=== PATIENT | male | born 1965 | race Caucasian/White ===

== ENCOUNTER 2016-08-13 20:46 | Emergency (ER) | payer SELFPAY ==
--- NOTE | 2016-08-13 20:51 | ED Physician Documentation ---
Lower Extremity Injury - HISTORIAN Historian: patient - HPI Stated Complaint: rolled ankle Chief Complaint: Ankle Injury Additional Information: Walking from [place] to [place] along [address] and rolled right ankle. Onset: minutes - ROS CONST: no problems - PAST HX Past History: other (multiple fx's right foot and ankle arter he jumped from [place] roof. Simus surgery, tonsillectomy.) Allergies/Adverse Reactions: Allergies Allergy/AdvReac Type Severity Reaction Status Date / Time No Known Allergies Allergy Verified 08/13/16 20:53 Home Medications: Ambulatory Orders Medication Instructions Recorded NK [NK] 08/13/16 - SOCIAL HX Smoking History: cigarettes - FAMILY HX Family History: other (depression) - VITAL SIGNS Vital Signs: Vital Signs Temp Pulse Resp BP Pulse Ox 90 16 125/93 99 08/13/16 20:46 08/13/16 20:46 08/13/16 20:46 08/13/16 20:46 - REVIEWED ASSESSMENTS Nursing Assessment Reviewed: Yes Vitals Reviewed: Yes Progress - Progress Progress: Right ankle -three views CLINICAL HISTORY: Injury. Lateral pain. FINDINGS: Examination right ankle in AP, lateral and oblique views fails to demonstrate evidence of fracture or dislocation. There is small ossicle adjacent to the distal fibula likely related to an old injury. Ankle mortise is anatomic. IMPRESSION: No acute fracture. Electronically signed on Aug 13, 2016 9:36:27 PM QA ANALYST by: Zafar Lee ED Results Lab/Radiology - Orders Orders: ED Orders Category Date Time Status Brandon Wrap Affected Extremity 1T Care 08/13/16 21:38 Active ANKLE 3 VIEWS OR MORE [RAD] Stat Exams 08/13/16 Taken Lower Extremities Injury Phy - Physical Exam General Appearance: no acute distress, alert Hips: bilateral hip: no evidence of injury Legs: bilateral: no evidence of injury Knees: bilateral: no evidence of injury Ankle: right: limited range of motion (2/2 pain), swelling (laterally), other ( DP and PT 2+), left: no evidence of injury Foot: bilateral foot: normal inspection, no evidence of injury Gait: limited by pain Neuro/Vascular/Tendon: no vascular compromise, motor nml, sensation nml. No: abnml color Head/ENT: nml inspection Neck/Back: nml inspection Resp/CVS: no resp. distress Abdomen: pelvis stable Discharge Clincal Impression: Ankle sprain Qualifiers: Encounter type: initial encounter Laterality: right Referrals: Primary Doctor,No [Primary Care Provider] - 2 Days Additional Instructions: Ice to the sore ankle for 30 minutes of each hour you are awake. Keep the right ankle elevated as much as possible for the next week. Home Medications: Ambulatory Orders NK [NK] 08/13/16 Condition: Fair Disposition: 01 HOME, SELF-CARE Decision to Admit: NO Decision Time: 21:41
[2016-08-13 21:03] VITALS: BP 125/93
--- NOTE | 2016-08-14 07:30 | Diagnostic Imaging Report ---
[facility] [place] [facility] [address] [facility] [address] [address] Report Submission Date: Aug 13, 2016 9:36:27 PM [employer] PROFESSOR Patient Study Name: PAULINE AGUIRRE Date: Aug 13, 2016 9:19:18 PM [employer] PROFESSOR Modality Type: CR Gender: M Description: LOWER EXTREMITY : 63 Institution: [facility] Physician: [facility] [place] Right ankle -three views CLINICAL HISTORY: Injury. Lateral pain. FINDINGS: Examination right ankle in AP, lateral and oblique views fails to demonstrate evidence of fracture or dislocation. There is small ossicle adjacent to the distal fibula likely related to an old injury. Ankle mortise is anatomic. IMPRESSION: No acute fracture. Electronically signed on Aug 13, 2016 9:36:27 PM [employer] PROFESSOR by: Zafar GARY
== END 2016-08-13 21:53 | disposition home or self-care (01) ==
LOC: ED 20:46
DX: S93.401A Sprain of unspecified ligament of right ankle, initial encounter (principal); X58.XXXA Exposure to other specified factors, initial encounter; Y93.9 Activity, unspecified; Y99.9 Unspecified external cause status
CPT/HCPCS: 73610; 99283; 99284